=== PATIENT | male | born 1945 | race Hispanic/Latino ===

== ENCOUNTER → 2020-04-09 | Outpatient (CLI) | payer MEDICARE ==
[~2020-04-09] MED LIST: MELOXICAM7.5 MG PO; ZEGERID 20 MG1 EACH PO
== END ==
LOC: DX 11:12
PROVIDERS: ATTEND Family Medicine
DX: M85.80 Other specified disorders of bone density and structure, unspecified site (principal)
CPT/HCPCS: 77080

== ENCOUNTER → 2021-10-27 | Outpatient (CLI) | payer MEDICARE | LOC: DX 09:07 | PROVIDERS: ATTEND Family Medicine | DX: Z13.820 Encounter for screening for osteoporosis (principal) | CPT/HCPCS: 77080 ==